=== PATIENT | female | born 1965 | race African-American/Black ===

== ENCOUNTER 2017-12-21 06:17 | Inpatient (IN) | payer OTHER ==
[2017-12-17 18:16] VITALS: BMI 34.0
[2017-12-21] MEDS ORDERED: ROCURONIUM BROMIDE 50 MG/5 ML VIAL ONE ×2 (07:24→09:48)
[2017-12-21] MEDS ORDERED: fentaNYL CITRATE 250 MCG/5 ML VIAL ONE (07:24)
[2017-12-21] MEDS ORDERED: PROPOFOL 20 ML ONE ×2 (07:25→12:39)
[2017-12-21] MEDS ORDERED: LIDOCAINE HCL/PF 2% SDV 5ML VIAL ONE (07:25)
[2017-12-21] MEDS ORDERED: DEXAMETHASONE SOD PHOSPHATE 4 MG/1 ML VIAL ONE (07:25)
[2017-12-21] MEDS ORDERED: BUPIVACAINE HCL/PF 0.5% (5MG/ML) 10 ML VIAL ONE ×2 (07:44→12:31)
[2017-12-21] MEDS ORDERED: ROPIVACAINE HCL 0.5% 30ML VIAL ONE ×2 (08:11→08:12)
[2017-12-21] MEDS ORDERED: PHENAZOPYRIDINE HCL 100 MG TABLET (FP) PO ONE (08:12)
[2017-12-21] MEDS ORDERED: MIDAZOLAM HCL 2 MG/2 ML SINGLE DOSE VIAL ONE ×2 (08:16)
[2017-12-21] MEDS ORDERED: IBUPROFEN 800 MG/8 ML IJ IVPB PRN (08:22)
--- NOTE | 2017-12-21 08:22 | HP ---
History & Physical Update - History History: No Change - Physical Physical: No Change - Assessment Assessment: No Change - Plan Plan: No Change (No change in HP from)
--- NOTE | 2017-12-21 08:37 | OP ---
Operative Note - Note: Operative Date: 12/21/17 Pre-Operative Diagnosis: Leiomyomatous Uterus Operation: Laparoscopic robotic Total Hysterectomy. bilateral salpingectomy. explorratory laparotomy for removal of uterus Findings: Leiomyomatous uterus Post-Operative Diagnosis: Same as Pre-op Surgeon: Carrie Purdy Share Dairy Farmer: Brodie Dow Anesthesia: General Estimated Blood Loss (mls): 600 Operative Report Dictated: Yes
[2017-12-21] MEDS ORDERED: ceFAZolin SODIUM 1 GM VIAL IVPB ONE (08:45)
[2017-12-21] MEDS ORDERED: ceFAZolin SODIUM 1 GM VIAL ONE (09:12)
[2017-12-21] MEDS ORDERED: CEFAZOLIN 2 GM/D5W 2 GM/50 ML ML IVPB SCH (10:00)
[2017-12-21] MEDS ORDERED: BUPIVACAINE HCL/PF (5 MG/ML) 30 ML VIAL IJ ONE ×2 (10:06→12:25)
[2017-12-21] MEDS ORDERED: DESFLURANE GAS 240 ML BOTTLE IH ONE (11:00)
[2017-12-21] MEDS ORDERED: NEOSTIGMINE METHYLSULFATE 0.5 MG/ML - 10 ML MDV ONE (12:05)
[2017-12-21] MEDS ORDERED: GLYCOPYRROLATE 0.2 MG/1 ML VIAL ONE (12:05)
--- NOTE | 2017-12-21 13:31 | SURG ---
Surgery As400 Programmer Analyst Note As400 Programmer Analyst: Brodie Dow PA-C Date of Service: 12/21/17 Diagnosis: Leiomyomatous Uterus Procedure: Robotic assisted total hysterectomy. bilateral salpingectomy --> had to open to retrieve specimen (uterus) I was present for the entirety of the operative procedure. For further detail, please refer to operative report. Visit type - Case Type Case Type: Scheduled - New patient This patient is new to me today: Yes Date on this admission: 12/21/17
[2017-12-21] MEDS ORDERED: HYDROmorphone *PCA* 10MG/50ML DISP.SYRIN PCA ONE (14:01)
[2017-12-21] MEDS ORDERED: ONDANSETRON 4 MG/2 ML VIAL IVPUSH PRN (14:55)
[2017-12-21] MEDS ORDERED: HYDROmorphone *PCA* 10MG/50ML DISP.SYRIN PCA SCH (15:00)
[2017-12-21] MEDS: LACTATED RINGERS SOLUTION 1,000 ML IV SCH (15:25)
[2017-12-21 19:10] LABS: HEMATOCRIT 36.8 % (32.4-45.2); HEMOGLOBIN 11.7 GM/dL (10.7-15.3); MCH 26.8 pg (25.7-33.7); MCHC 31.8 g/dl (32.0-36.0); MEAN CELL VOLUME 84.2 fl (80-96); MEAN PLT VOLUME 10.4 fl (7.5-11.1); PLATELET COUNT 196 K/MM3 (134-434); RBC 4.37 M/mm3 (3.60-5.2); RDW 15.6 % (11.6-15.6); WHITE BLOOD COUNT 15.5 K/mm3 (4.0-10.0)
[2017-12-21] MEDS: CEFAZOLIN 2 GM/D5W 2 GM/50 ML ML IVPB SCH (19:38)
[2017-12-22] MEDS: CEFAZOLIN 2 GM/D5W 2 GM/50 ML ML IVPB SCH (01:29)
--- NOTE | 2017-12-22 06:56 | OP ---
DATE OF OPERATION: 12/21/2017 PREOPERATIVE DIAGNOSIS: Leiomyomatous uterus and pelvic pain. OPERATION: Total laparoscopic robotic hysterectomy and exploratory laparotomy for removal of the uterus. SURGEON: Carrie Purdy MD ASSISTANTS: SERA Cardoso and SERA ANESTHESIA: General. ANESTHESIOLOGISTS: Shade Durant MD and Dionisio Valenzuela MD PROCEDURE: Patient was taken to the operating room, placed in dorsal lithotomy position, prepped and draped in usual sterile fashion. A timeout was performed in accordance with hospital regulation. Attention was then drawn to the vagina, where anterior lip of the cervix was grasped with a single tooth tenaculum. The VCare device was then inserted. Attention was then drawn to the umbilicus where an 8-mm umbilical incision was made. Veress needle was inserted into the cavity. Approximately 3-4 L of CO2 was insufflated in the cavity. Veress needle was then removed and an 8-mm trocar was then inserted. Laparoscope and camera attached. Trocars were then inserted, two on the left, one parallel to the umbilical incision and then one in the upper left quadrant, AirSeal cannula inserted and a 5-mm incision was made. Two other trocars were inserted on the right 8 mm apart, and trocars were inserted under direct visualization both parallel to the umbilical incision. A supraumbilical incision had to be made after umbilical incision had been made and the trocar was inserted in the supraumbilical incision. Da Cyndie robot was then side docked, and trocars were then inserted. Instruments were then placed, a vessel sealer on the left, tenaculum and Endoshears on the right. A large leiomyomatous uterus approximately 17 cm in size was seen. Tenaculum was then used to elevate the uterus to the right, and round ligament was identified, clamped and cut, uteroovarian ligament identified and clamped and cut. Ovary on the left was noted to be normal. Tube on the left normal. Vesicouterine reflection was then entered and bladder was blunted dissected out of the operative field. The uterine artery was identified, clamped and cut. Cardinal ligament was identified and clamped and cut, down to the level of the cervix. Vagina was then entered anteriorly and VCare device was seen. Same procedure was repeated on the left. Due to size, it was uncertain if the uterus would be able to be removed from the vagina. After the same procedure was repeated on the right side, the Endoshears was then used to cut the cervix away from the vagina. Amputation of the cervix had been done and a portion of the cervix was removed from the vagina. The uterus was then attempted to be removed and unable to be removed due to size. The needle was passed and closure of the vaginal cuff was done using V-Loc suture. The ureters were identified and both found to have peristalsis. Tubes were bilaterally removed and submitted to Pathology. Decision was made to make a Pfannenstiel skin incision to remove the uterus due to the size. Pfannenstiel skin incision was made with the scalpel. Cautery was then used to go through the layers of the abdominal wall to the level of the fascia. Fascia was cut in the midline. Cautery was then used to open the fascia in a fashion. Peritoneum was then entered, and the uterus was removed. Peritoneal cavity was then closed using 0 Vicryl suture. Muscles approximated in the midline using 0 Vicryl suture. Fascia was then closed using 0 Vicryl suture in 2 parts. Subcutaneous was closed using interrupteds using 0 Vicryl suture, and all incisions were then closed using 3-0 Vicryl suture in subcuticular fashion. The wound was washed and dressed. Estimated blood loss 500 mL. Pad count was normal, and x-ray was taken and no lap pads were seen in the abdomen. Patient tolerated procedure well, was taken to recovery room in stable condition. Shara [id number]
[2017-12-22 07:17] LABS: HEMATOCRIT 31.3 % (32.4-45.2); HEMOGLOBIN 10.3 GM/dL (10.7-15.3); MCH 27.6 pg (25.7-33.7); MCHC 32.9 g/dl (32.0-36.0); MEAN CELL VOLUME 83.9 fl (80-96); PLATELET COUNT 163 K/MM3 (134-434); RBC 3.73 M/mm3 (3.60-5.2); RDW 15.4 % (11.6-15.6); WHITE BLOOD COUNT 12.8 K/mm3 (4.0-10.0)
--- NOTE | 2017-12-22 08:18 | PN ---
Progress Note, Physician Chief Complaint: Pt. resting comfortably in bed, used NEONATAL ICU COORDINATOR overnight some. Had severe pain when coughing. No GA complaints. - Current Medication List Current Medications: Active Medications Enoxaparin Sodium (Lovenox -) 40 mg SQ DAILY [facility]OTTIE Hydromorphone HCl (Dilaudid -) 4 mg PO Q4H PRN PRN Reason: PAIN LEVEL 7 - 10 Hydromorphone HCl (Dilaudid Powerhouse Oiler -) 0 mg NEONATAL ICU COORDINATOR NEONATAL ICU COORDINATOR SCOTTIE; Protocol Stop: 12/24/17 14:55 Last Admin: 12/21/17 13:45 Dose: 10 mg Lactated Ringer's (Lactated Ringers Solution) 1,000 mls @ 125 mls/hr IV ASDIR SCOTT[facility] Last Admin: 12/21/17 15:25 Dose: 0 mls Ibuprofen (Caldolor Injection -) 800 mg IVPB Q6H PRN PRN Reason: FEVER Ondansetron HCl (Zofran Injection) 4 mg IVPUSH Q6H PRN PRN Reason: NAUSEA AND/OR VOMITING - Objective Vital Signs: Vital Signs Temperature 99.2 F 12/22/17 05:47 Pulse Rate 68 12/22/17 05:47 Respiratory Rate 18 12/22/17 05:47 Blood Pressure 125/43 12/22/17 05:47 O2 Sat by Pulse Oximetry (%) 100 12/21/17 15:40 Constitutional: Yes: Well Nourished, No Distress, Calm Musculoskeletal: Yes: WNL Neurological: Yes: WNL, Alert, Oriented Labs: CBC, BMP 12/22/17 06:35 Assessment/Plan POD#1 s/p Robotic to open TAHBSO under GA with NEONATAL ICU COORDINATOR for pain control. Dong well. Continue NEONATAL ICU COORDINATOR.
[2017-12-22] MEDS: LACTATED RINGERS SOLUTION 1,000 ML IV SCH (08:30)
--- NOTE | 2017-12-22 08:42 | PN ---
Progress Note (short form) - Note Progress Note: POD #1 No acute events since surgery per RN notes. Resting comfortably in bed. Hasn't been OOB yet. Nayely dc'd this morning prior too my arrival. Adequate pain management via ELECTRONICS MANUFACTURER. Currently, pain /. Tolerating breakfast. Denies n/v/f/c, CP or SOB. Last Vital Signs Temp Pulse Resp BP Pulse Ox 98.4 F 73 18 124/83 100 12/22/17 08:26 12/22/17 08:26 12/22/17 08:26 12/22/17 08:26 12/21/17 15:40 CBC 12/22/17 06:35 GEN: nad PULM: cta bilat anteriorly COR: rrr ABD: all surgical ports c/d/i. Mini Pfannenstiel incision c/d/i. No hematoma. LE: SCDs bilat. Soft. NT Problem List - Problems (1) History of robot-assisted laparoscopic hysterectomy Assessment/Plan: and bilateral salpingectomy ELECTRONICS MANUFACTURER dc'd and orral pain management ordered OOB and ambulate Trial of void Regular diet Incentive spirometer 10x/hr Tylenol for fever > 100.3F Above plan discussed with Dr. Purdy and agrees. Code(s): Z90.710 - ACQUIRED ABSENCE OF BOTH CERVIX AND UTERUS
[2017-12-22] MEDS: ENOXAPARIN NA (PORCINE) 40 MG/0.4 ML DISP.SYRIN SQ SCH (09:54)
[2017-12-22] MEDS: traMADol HCL 50 MG TABLET PO PRN ×2 (09:55→18:47)
[2017-12-22] MEDS: HYDROmorphone HCL 2 MG TABLET PO PRN ×2 (11:23→15:20)
[2017-12-22] MEDS ORDERED: PCA PUMP KEY 1 EACH EACH ONE (12:43)
[2017-12-22 21:16] LABS: ANION GAP 8 (8-16); BLOOD UREA NITROGEN 11 mg/dL (7-18); CALCIUM 8.9 mg/dL (8.5-10.1); CHLORIDE 105 mmol/L (98-107); CO2 28 mmol/L (21-32); CREATININE 0.7 mg/dL (0.55-1.02); GLUCOSE,RANDOM 107 mg/dL (74-106); POTASSIUM 3.8 mmol/L (3.5-5.1); SODIUM 141 mmol/L (136-145)
[2017-12-23] MEDS: traMADol HCL 50 MG TABLET PO PRN ×2 (05:18→11:33)
--- NOTE | 2017-12-23 07:46 | PN ---
Progress Note (SOAP) - Subjective Chief Complaint: Pt doing well no flatus - Current Medications Current Medications: Active Medications Enoxaparin Sodium (Lovenox -) 40 mg SQ DAILY [facility] Last Admin: 12/22/17 09:54 Dose: 40 mg Hydromorphone HCl (Dilaudid -) 4 mg PO Q4H PRN PRN Reason: PAIN LEVEL 7 - 10 Last Admin: 12/22/17 15:20 Dose: 4 mg Lactated Ringer's (Lactated Ringers Solution) 1,000 mls @ 125 mls/hr IV ASDIR [facility] Last Admin: 12/22/17 08:30 Dose: 125 mls/hr Ibuprofen (Caldolor Injection -) 800 mg IVPB Q6H PRN PRN Reason: FEVER Ondansetron HCl (Zofran Injection) 4 mg IVPUSH Q6H PRN PRN Reason: NAUSEA AND/OR VOMITING Tramadol HCl (Ultram -) 50 mg PO Q6H PRN PRN Reason: PAIN LEVEL 1-5 Last Admin: 12/23/17 05:18 Dose: 50 mg - Objective Vital Signs: Vital Signs Temperature 98.3 F 12/23/17 05:22 Pulse Rate 96 H 12/23/17 05:22 Respiratory Rate 18 12/23/17 05:22 Blood Pressure 150/76 12/23/17 05:22 O2 Sat by Pulse Oximetry (%) 100 12/21/17 15:40 Constitutional: Yes: Well Nourished, Obese Gastrointestinal: Yes: Soft, Abdomen, Obese Edema: No Wound/Incision: Yes: Well Approximated, Steri Strips, Dressing Removed Neurological: Yes: WNL, Alert, Oriented Labs Lab Results: CBC, BMP 12/22/17 06:35 12/22/17 20:20 Problem List - Problems (1) History of robot-assisted laparoscopic hysterectomy Code(s): Z90.710 - ACQUIRED ABSENCE OF BOTH CERVIX AND UTERUS Assessment/Plan SP robotic hysterectomy bilateral salpingectomy POD2 NO fltus this morn will dc home after flatus
[2017-12-23] MEDS ORDERED: BISACODYL 10 MG SUPP.RECT PR ONE (07:48)
[2017-12-23 08:38] LABS: HEMATOCRIT 34.3 % (32.4-45.2); HEMOGLOBIN 11.2 GM/dL (10.7-15.3); MCH 27.4 pg (25.7-33.7); MCHC 32.6 g/dl (32.0-36.0); MEAN CELL VOLUME 83.9 fl (80-96); MEAN PLT VOLUME 9.7 fl (7.5-11.1); PLATELET COUNT 160 K/MM3 (134-434); RBC 4.08 M/mm3 (3.60-5.2); RDW 15.3 % (11.6-15.6); WHITE BLOOD COUNT 9.7 K/mm3 (4.0-10.0)
[2017-12-23 09:13] LABS: ANION GAP 9 (8-16); BLOOD UREA NITROGEN 8 mg/dL (7-18); CALCIUM 8.2 mg/dL (8.5-10.1); CHLORIDE 102 mmol/L (98-107); CO2 26 mmol/L (21-32); CREATININE 0.7 mg/dL (0.55-1.02); GLUCOSE,RANDOM 89 mg/dL (74-106); POTASSIUM 3.8 mmol/L (3.5-5.1); SODIUM 137 mmol/L (136-145)
[2017-12-23] MEDS: LACTATED RINGERS SOLUTION 1,000 ML IV SCH (09:29)
[2017-12-23] MEDS: ENOXAPARIN NA (PORCINE) 40 MG/0.4 ML DISP.SYRIN SQ SCH (09:44)
[2017-12-23 10:22] VITALS: BP 129/69; PULSE 78; TEMP 98.4
--- NOTE | 2017-12-28 20:37 | PATH ---
Surgical Pathology Report Patient Name: IRA PORTER [facility]. Rec. #: [id number] /Age/Gender: 1965 (Age: 52) / F Account: [id number] Location: [facility] OBS/DIGITAL MARKETING SPECIALIST Taken: 12/21/2017 Received: 12/21/2017 Reported: 12/28/2017 Physicians: Carrie Purdy M.D. Specimen(s) Received A: UTERUS AND CERVIX B: LEFT FALLOPIAN TUBE C: RIGHT FALLOPIAN TUBE D: LEFT PERITONEAL CYST Clinical History Myomatous uterus Final Diagnosis A. UTERUS AND CERVIX, HYSTERECTOMY: LEIOMYOMATA. ATROPHIC ENDOMETRIUM. CERVIX WITH CHRONIC INFLAMMATION. B. LEFT FALLOPIAN TUBE, SALPINGECTOMY: SEGMENTS OF FALLOPIAN TUBE WITH PARATUBAL CYST. C. RIGHT FALLOPIAN TUBE, SALPINGECTOMY: SEGMENT OF FALLOPIAN TUBE WITH NO DIAGNOSTIC ABNORMALITIES. D. LEFT PERITONEAL CYST, REMOVAL: LYMPHANGIOMA. SEE COMMENT. Comment: Cysts lined by lymphatic endothelial cells highlighted by immunohistochemistry stain D2-40. D2-40 was performed at [place], [place] ([id number]) and interpreted at [facility]. Positive and negative control show appropriate results. Electronically Signed Maciej Hurt M.D. Gross Description A. Received in formalin labeled "uterus and cervix" is a 461 g supracervically amputated uterus with no attached adnexa. The cervix is separately received within the same container. The specimen measures 10 cm from superior to inferior, 9.5 cm from anterior to posterior and 7.0 cm from left to right. The serosa is noriega-pink with focal bulging subserosal nodules as well as focal defects. The endometrial cavity measures 4.5 cm in length and 3.5 cm from cornu to cornu. The endometrium is noriega-red and averages 0.1 cm in thickness. There are 2 necrotic, degenerative intramural nodules at the fundus of the specimen. The fibroids measure 4.2 and 4.4 cm in greatest dimension. The remaining myometrium displays abundant intramural nodules measuring up to 4.7 cm in greatest dimension. The cut surface of the nodules is noriega, firm to rubbery and displays whorled architecture. The remaining myometrium is noriega-pink and measures up to 4.6 cm in thickness. The separately received cervix measures 3.5 cm in length and averages 2.3 cm in diameter. There is a portion of noriega kenyon ectocervix attached. The endocervix is unremarkable. Metal Baler sections are submitted in 15 cassettes as follows: 1-2-cervix; 6-9-gejmnostdyaepp; 9-2-delnexpova nodules; 1-53-nkapaoqz fundic nodules; 13-largest intramural nodule; 47-78-ubupfgqyxq intramural nodules. B. Received in formalin labeled "left fallopian tube," is a 2 cm in length fimbriated fallopian tube. The outer surface is noriega with fibrous adhesions and displays a 0.9 cm in greatest dimension attached paratubal cyst. Sectioning reveals an unremarkable fallopian tube lumen. Metal Baler sections are submitted as follows: 1-fimbria; 2-cross sections of fallopian tube and paratubal cyst. C. Received in formalin labeled "right fallopian tube," is a 5.5 cm in length fimbriated fallopian tube. The outer surface is noriega-braswell and smooth. Sectioning reveals an unremarkable lumen. Metal Baler sections are submitted in 2 cassettes as follows: 1-fimbria; 2-cross sections of fallopian tube. D. Received in formalin labeled "left peritoneal cyst," are 2 intact, translucent cysts measuring 1.1 and 1.5 cm in greatest dimension. The cyst lumens contain clear serous fluid. The specimens are bisected and entirely submitted in one cassette. 12/22/201712/22/2017
== END 2017-12-23 13:40 | disposition home or self-care (01) | DRG 743 ==
LOC: JASUSAT 06:17 → JSAMEDAYSX 06:25 → JASUSAT 06:25 → J3W 16:03 → JASUSAT 12-22 17:02
PROVIDERS: ADMIT Obstetrics & Gynecology; ATTEND Obstetrics & Gynecology
PROC: 8E0W4CZ Robotic Assisted Procedure of Trunk Region, Percutaneous Endoscopic Approach (ICD-10-PCS; 2017-12-21)
PROC: 0UT9FZZ Resection of Uterus, Via Natural or Artificial Opening With Percutaneous Endoscopic Assistance (ICD-10-PCS; principal; 2017-12-21 08:00)
PROC: 0UT7FZZ Resection of Bilateral Fallopian Tubes, Via Natural or Artificial Opening With Percutaneous Endoscopic Assistance (ICD-10-PCS; 2017-12-21 08:00)
DX: D25.9 Leiomyoma of uterus, unspecified (principal); R19.2 Visible peristalsis
CPT/HCPCS: 36415; 74018-TC-FY; 80048; 84703; 85027; 86850; 86900; 86901; 88302-TC; 88304-TC; 88307-TC; 94760